=== PATIENT | female | born 1965 | race Caucasian/White ===

== ENCOUNTER 2016-05-23 14:41 | Emergency (ER) | payer OTHER ==
[~2016-05-23 14:41] MED LIST: *UNABLE1; ACET500CAP PO; ADVIL PO; APRES25 PO; CELEXA; DEPAKOTEER PO; DSS PO; DULERA 200 MCG/13 GM INH; GEODON; GEODON60 MG PO; HABIT14 TOP; HALDOL; HYGROTON 25 MG25 MG PO; KLONO5 PO; LOP25 PO; MEDROLPAK4 PO; MSCONT15 PO; NORV10 PO; P10 PO; P20 PO; PCET PO; PROAIR HFA INH; PROVENT20 INH; PROVENTSOL INH; SEROQUEL1C PO; SPIRIVA INH; TESS PO; TRAZ100 PO; TRAZODONE; VIB50 PO; WELLBUTRIN; WELLSR150 PO
[2016-05-23 15:31] LABS: BASOPHILS 0.1 %; BASOPHILS ABSOLUTE 0.01 10/3/uL (0.0-0.16); EOSINOPHILS 0.1 %; EOSINOPHILS ABSOLUTE 0.01 10/3/uL (0.0-0.53); IMMATURE GRANULOCYTES 0.5 %; IMMATURE GRANULOCYTES ABSOLUTE 0.05 10/3/uL (0.0-0.11); LYMPHOCYTES 4.4 %; LYMPHOCYTES ABSOLUTE 0.44 10/3/uL (0.67-4.30); MEAN CORPUS HGB CONC 31.4 g/dL (32.0-36.0); MEAN CORPUSCULAR HEMOGLOB 22.9 pg (26.0-34.0); MEAN PLATELET VOLUME 9.2 fL (9.2-13.0); MONOCYTES 6.7 %; MONOCYTES ABSOLUTE 0.67 10/3/uL (0.21-1.20); NEUTROPHILS 88.2 %; NEUTROPHILS ABSOLUTE 8.84 10/3/uL (2.02-8.40); PLATELET COUNT 213 10/3/uL (150-400); RBC DISTRIBUTION WIDTH 19.1 % (12.0-16.0)
[2016-05-23 15:33] LABS: HEMATOCRIT 46.8 % (36.0-48.0); HEMOGLOBIN 14.7 g/dL (12.0-16.0); MANUAL DIFF NO %; MEAN CORPUSCULAR VOLUME 72.9 fL (80-100); RED CELL COUNT 6.42 10/6/uL (4.0-5.6)
[2016-05-23 15:47] LABS: A/G RATIO 0.7 (0.7-1.9); ALBUMIN 3.1 G/DL (3.5-5.0); ALKALINE PHOSPHATASE 74 U/L (45-117); BUN (BLOOD UREA NITROGEN) 13 MG/DL (6-23); CALCIUM, SERUM 8.4 MG/DL (8.5-10.4); CHLORIDE, SERUM 102 MMOL/L (96-112); CO2 (CARBON DIOXIDE) 32 MMOL/L (24-34); CREATININE 0.81 MG/DL (0.55-1.02); GFR AFRICAN AMERICAN 100 ML/MIN (>=60); GFR NON AFRICAN AMERICAN 86 ML/MIN (>=60); GLOBULIN 4.4 G/DL (2.5-4.1); GLUCOSE, SERUM 117 MG/DL (60-99); POTASSIUM, SERUM 3.9 MMOL/L (3.5-5.3); SGOT(AST) 10 U/L (5-40); SGPT(ALT) 17 U/L (5-65); SODIUM, SERUM 140 MMOL/L (135-148); TOTAL BILIRUBIN 0.8 MG/DL (0-1.2); TOTAL PROTEIN 7.5 G/DL (6.0-8.5)
[2016-09-17] MEDS ORDERED: PROVHFA INH (20:15)
[2016-09-17] MEDS ORDERED: NORV10 PO (20:15)
[2016-09-17] MEDS ORDERED: KLONO5 PO (20:15)
[2016-09-17] MEDS ORDERED: ANTI-DEPRESSANT PO (20:16)
[2016-09-17] MEDS ORDERED: ANOROELLIPTA INH (20:16)
[2016-09-17] MEDS ORDERED: ICY HOT OINTMENT TOP (20:17)
[2016-09-17] MEDS ORDERED: P10 PO (20:17)
[2016-09-17] MEDS ORDERED: ADVIL PO (20:17)
== END 2016-05-23 22:24 | disposition left against medical advice (07) ==
LOC: ER 14:41
PROVIDERS: Emergency Medicine
DX: Z53.21 Procedure and treatment not carried out due to patient leaving prior to being seen by health care provider (principal)
CPT/HCPCS: 80053; 81001; 83690; 84703; 85025; 93005

== ENCOUNTER 2016-11-26 17:48 | Inpatient (IN) | payer OTHER ==
[~2016-11-26] VITALS: Ht 170.2 cm; Wt 137.4 kg
--- NOTE | ~2016-11-26 | HP ---
History And Physical [facility] [address] [facility] [place]. [address] NAME: SEFERINO AWAN : 69 STATUS : ADM Jose PAT#: [id number] AGE: 51 ADM/REG DATE : 11/26/16 MR#: [id number] REPORT SERV DATE: 11/26/16 DICTATED BY: HUMBERTO DALTON DATE: 11/26/16 REPORT STATUS : Draft TRANSCRIBED BY: MODL DATE: 11/26/16 DATE OF ADMISSION: 11/26/2016 CHIEF COMPLAINT: Shortness of breathing. HISTORY OF PRESENT ILLNESS: This is a 51-year-old female with a history of hypertension; bipolar disorder; obstructive sleep apnea and schizoaffective disorder; history of polysubstance abuse with methamphetamine, marijuana, and tobacco, who presents to the emergency room at [facility], with the above-mentioned complaint. History is obtained from the patient and reviewing data available on the [employer] system. According to the patient, she was in her usual state of health until about three days ago when she started having shortness of breath. She had an inhaler, which she had received from her primary care physician, and she had used this on an as needed basis. However, that did not work, and she continued to get worse to the point she could not breathe at all. She decided to come to the emergency room to be evaluated. In the emergency room, she was found to have an exacerbation of her COPD. CTA of the chest and chest x-ray were unremarkable. An EKG showed normal sinus rhythm at a rate of 90. She did have a small bump in her troponin as well, and Hospitalist Service is asked to admit her for further evaluation and treatment. At the time of my evaluation, she denied any chest pain or palpitations. She had no orthopnea. She had a cough, which was essentially nonproductive, not associated with hemoptysis, night sweats, or weight loss. She denied any recent fevers, chills, nausea, vomiting, diarrhea, or dysuria. She denied any hematemesis, hematochezia, or hematuria. No other history of recent travel or exposures other than those mentioned above. PAST MEDICAL HISTORY: Significant for history of COPD with current smoking; history of bipolar disorder; essential hypertension; history of sleep apnea noncompliant with CPAP; schizoaffective disorder; and substance abuse with methamphetamine, marijuana, and tobacco. SOCIAL HISTORY: As mentioned above, she has ongoing use for methamphetamine and marijuana. She says she quit smoking about a week or so ago. She denied alcohol use. FAMILY HISTORY: Noncontributory. MEDICATIONS: Her medications at home were reviewed by me in the chart today and reordered by me. REVIEW OF SYSTEMS: As in history of present illness. All other systems were reviewed in detail and are quite unremarkable. PHYSICAL EXAMINATION: GENERAL: This is a pleasant 51-year-old not in any acute distress. History And Physical [address] [place]. [address] NAME: SEFERINO AWAN : 69 STATUS : ADM Jose PAT#: [id number] AGE: 51 ADM/REG DATE : 11/26/16 MR#: [id number] REPORT SERV DATE: 11/26/16 DICTATED BY: HUMBERTO DALTON DATE: 11/26/16 REPORT STATUS : Draft TRANSCRIBED BY: FRANKLIN DATE: 11/26/16 HEENT: Her head is atraumatic, normocephalic. She is alert, awake, oriented to time, place, and person. Her pupils are equal, reacting to light and accommodating. External ocular muscles are intact. Membranes are moist and pink. Sclerae are nonicteric. NECK: Supple with no jugular venous distention, lymphadenopathy, or thyromegaly. She is morbidly obese. LUNGS: Auscultation of her lungs revealed fair to moderate air entry bilaterally with diffuse bilateral expiratory wheezes as well. Trachea appears in the midline. HEART: Heart sounds were regular with no murmurs, rubs, or gallops. ABDOMEN: Soft, nontender. Bowel sounds are present. EXTREMITIES: Showed no cyanosis, clubbing, or edema. NEURO: Grossly intact. No focal sensory or motor deficits. Higher functions appeared intact. Gait was normal. VITAL SIGNS: Her vital signs today showed a temperature of 98.2, pulse 124, respirations 28 a minute, blood pressure was 142/78, oxygen saturations were 93% breathing 4 L of oxygen via nasal cannula. LABORATORY DATA: Reviewed on the [employer] system showed a pH of 7.33 on an arterial blood gas, PCO2 was 54, PaO2 of 64, and bicarb was 27.8. This was on 2 L via nasal cannula. Her CMP was within normal limits. Blood glucose was 76 today. Her troponin was elevated at 0.08. CBC showed a white blood cell count of 13,700. Normal hemoglobin, hematocrit, and platelet count. Films of the CTA of her chest and chest x-ray were reviewed by me on the PACS today and interpreted by me. The CTA of her chest did not reveal any pulmonary embolism. No lobar consolidations or pleural effusions. Chest x-ray was clear as well. A 12-lead EKG done in the emergency room was reviewed and interpreted by me. There is normal sinus rhythm at a rate of 90 per minute without any ST changes. IMPRESSION: 1. Shortness of breath. 2. Acute exacerbation of her chronic obstructive pulmonary disease. 3. Elevated troponin. 4. Hypertension. 5. Bipolar disorder. 6. Sleep apnea, noncompliant. 7. Schizoaffective disorder. 8. Polysubstance abuse. PLAN: We will admit Ms. Awan to the Hospitalist Service to a cardiac telemetry for 24-hour observation period. We will maximize her bronchodilator treatments, continue supplemental oxygen therapy, place her on inhaled and intravenous corticosteroids as well. We will also start her on empiric antibiotics. We will follow serial troponin levels, although I think it may be demand ischemia due to her hypoxia. We will also start her on blood pressure control and her home medications, especially her psychiatric medicines. We will place her on unfractionated heparin for DVT prophylaxis while here. We will also check UDS today. I have discussed the above plans with the patient, her questions were answered, and she is agreeable to the above recommendations. History And Physical [address] [address] NAME: SEFERINO AWAN : 69 STATUS : ADM Jose PAT#: [id number] AGE: 51 ADM/REG DATE : 11/26/16 MR#: [id number] REPORT SERV DATE: 11/26/16 DICTATED BY: HUMBERTO DALTON DATE: 11/26/16 REPORT STATUS : Draft TRANSCRIBED BY: FRANKLIN DATE: 11/26/16 Hospitalist Service will be following her during her stay here. /FRANKLIN Humberto Dalton M.D. / [id number] CC: Ramon Arizmendi MD
--- NOTE | ~2016-11-26 | DS ---
Discharge Summary [address] [place]. [address] NAME: SEFERINO AWAN : 69 STATUS : DIS IN PAT#: [id number] AGE: 51 ADM/REG DATE : 11/26/16 MR#: [id number] REPORT SERV DATE: 11/30/16 DICTATED BY: MADISYN PEREIRA DATE: 11/30/16 REPORT STATUS : Draft TRANSCRIBED BY: MODTerence DATE: 11/30/16 ADMISSION DATE: 11/26/2016 DISCHARGE DATE: 11/30/2016 DIAGNOSES: 1. Chronic obstructive pulmonary disease exacerbation. 2. Acute hypoxic respiratory failure, resolved. 3. Hypertension. 4. History of obstructive sleep apnea noncompliant with CPAP. FOLLOWUP: The patient is to follow up with the primary care physician in one to two weeks. The patient states she follows up at the [facility] in [place], [place]. HOSPITALIST: Dr. Mil Robbins with [facility], nurse practitioner; Dr. Floyd; Dr. Pereira; and Dr. Humberto Rivers. DISCHARGE MEDICATIONS: Amlodipine 10 mg p.o. q.h.s.; Seroquel 50 mg p.o. b.i.d.; Klonopin 0.5 mg p.o. q.h.s., per home dose; hydralazine 25 mg p.o. q.12 hours; prednisone taper at 30 mg p.o. daily for two days, then 20 mg p.o. daily for two days, then to continue at her maintenance dose of 10 mg p.o. daily per her home dose; albuterol MDI two puffs inhaled every four hours p.r.n.; albuterol neb q.6 hours; Symbicort 160/4.5 two puffs inhaled b.i.d.; Spiriva inhaled daily; Levaquin 750 mg p.o. daily for three days. HOSPITAL COURSE: Please see H and P dictated by Dr. Humberto Rivers. This is a 51-year-old female with a past medical history of hypertension, schizoaffective disorder, obstructive sleep apnea noncompliant with the CPAP, also history of tobacco abuse, presented with shortness of breath. The patient states she has used prednisone as an outpatient without any alleviation of her symptoms. She was found to have bilateral wheezing. She did have a CTA that was initially unremarkable. She was admitted to the hospitalist Service for COPD exacerbation as well as the acute hypoxic respiratory failure. She did have some mild troponinemia secondary to her acute hypoxic respiratory failure, but no complaints of chest discomfort. She was initially cared for by other hospitalists with no noted EKG changes with a normal sinus rhythm, no ST elevations. The patient was educated on the importance of compliance with medical therapy, and she was continued on antibiotics as well as bronchodilators and slow steroid taper with improvement of her clinical symptoms, although at the time of discharge, the patient did still have some mild wheezing, however, the patient was adamant about being discharged to home. O2 sats at the time of discharge remained greater than 90% on room air with ambulation. Also, to know her UDS was positive for amphetamines and tricyclics. The patient was discharged to home in stable condition to followup with her primary care as an outpatient. I attended care for this patient initiating on 11/29/2016. Please refer to records from previous providers for further details, per Dr. Humberto Rivers, Dr. Mil Robbisn, and Dr. Floyd. [facility] Discharge Summary [address] [address] NAME: SEFERINO AWAN : 69 STATUS : DIS IN [facility]#: [id number] AGE: 51 ADM/REG DATE : 11/26/16 MR#: [id number] REPORT SERV DATE: 11/30/16 DICTATED BY: MADISYN PEREIRA DATE: 11/30/16 REPORT STATUS : Draft TRANSCRIBED BY: FRANKLIN DATE: 11/30/16 Madisyn Pereira M.D. / [id number] CC: Madisyn Pereira M.D.
[~2016-11-26 17:48] MED LIST changes: +ANOROELLIPTA INH; +ANTI-DEPRESSANT PO; +ICY HOT OINTMENT TOP; +PROVHFA INH
[2016-11-26 19:29] LABS: BASOPHILS 0.5 %; BASOPHILS ABSOLUTE 0.07 10/3/uL (0.0-0.16); EOSINOPHILS 0.4 %; EOSINOPHILS ABSOLUTE 0.06 10/3/uL (0.0-0.53); HEMOGLOBIN 13.7 g/dL (12.0-16.0); IMMATURE GRANULOCYTES 0.7 %; IMMATURE GRANULOCYTES ABSOLUTE 0.09 10/3/uL (0.0-0.11); LYMPHOCYTES 14.6 %; LYMPHOCYTES ABSOLUTE 2.01 10/3/uL (0.67-4.30); MEAN CORPUS HGB CONC 31.1 g/dL (32.0-36.0); MEAN CORPUSCULAR HEMOGLOB 25.5 pg (26.0-34.0); MEAN PLATELET VOLUME 9.2 fL (9.2-13.0); MONOCYTES 9.2 %; MONOCYTES ABSOLUTE 1.27 10/3/uL (0.21-1.20); NEUTROPHILS 74.6 %; NEUTROPHILS ABSOLUTE 10.23 10/3/uL (2.02-8.40); PLATELET COUNT 223 10/3/uL (150-400); RBC DISTRIBUTION WIDTH 17.6 % (12.0-16.0); RED CELL COUNT 5.38 10/6/uL (4.0-5.6); WHITE BLOOD CELLS 13.7 10/3/uL (4.5-10.5)
[2016-11-26 19:30] LABS: MANUAL DIFF NO %; MEAN CORPUSCULAR VOLUME 81.8 fL (80-100)
[2016-11-26 19:37] LABS: PROTIME (NOT ORD) 13.1 SEC (12.0-14.5)
[2016-11-26 19:47] LABS: BUN (BLOOD UREA NITROGEN) 8 MG/DL (6-23); CALCIUM, SERUM 9.1 MG/DL (8.5-10.4); CHLORIDE, SERUM 102 MMOL/L (96-112); CO2 (CARBON DIOXIDE) 31 MMOL/L (24-34); CREATININE 0.66 MG/DL (0.55-1.02); GFR AFRICAN AMERICAN 120 ML/MIN (>=60); GFR NON AFRICAN AMERICAN 104 ML/MIN (>=60); GLUCOSE, SERUM 76 MG/DL (60-99); POTASSIUM, SERUM 3.7 MMOL/L (3.5-5.3); SODIUM, SERUM 140 MMOL/L (135-148)
[2016-11-26 19:48] LABS: CHEST PAIN PROFILE TAT 0 Hrs 23 Mins; TROPONIN I 0.08 NG/ML (<0.05)
[2016-11-26] MEDS ORDERED: ALBUTEROL0.083 % INH (19:49)
[2016-11-26] MEDS ORDERED: SEROQUEL1C PO (19:54)
[2016-11-26 20:22] LABS: BE (BASE EXCESS) 0.8 MEQ/L (0 +/- 2.5); HCO3 (ACTUAL BICARBONATE) 27.8 MEQ/L (23-27); INSTRUMENT SERIAL # 8087; PCO2 (CO2 TENSION) 54 MMHG (35-45); PO2 (O2 TENSION) 64 MMHG (79-93); pH 7.33 (7.37-7.43)
[2016-11-26 20:23] LABS: ALLENS TEST Pos; CARBOXYHEMOGLOBIN 2.7 % (0-3); DEVICE NC; HEMOBLOGIN CONTENT 14.2 G/DL (12-16); METHEMOGLOBIN 0.2 % (0-3); O2 CONTENT 17.7 VOL% (18-24); OPERATOR ID 30013; SAMPLE Arterial
[2016-11-27 04:03] LABS: BASOPHILS 0.1 %; BASOPHILS ABSOLUTE 0.02 10/3/uL (0.0-0.16); EOSINOPHILS 0 %; HEMATOCRIT 43.9 % (36.0-48.0); HEMOGLOBIN 13.9 g/dL (12.0-16.0); IMMATURE GRANULOCYTES 0.5 %; IMMATURE GRANULOCYTES ABSOLUTE 0.08 10/3/uL (0.0-0.11); LYMPHOCYTES 2.7 %; LYMPHOCYTES ABSOLUTE 0.41 10/3/uL (0.67-4.30); MEAN CORPUS HGB CONC 31.7 g/dL (32.0-36.0); MEAN CORPUSCULAR HEMOGLOB 25.7 pg (26.0-34.0); MEAN CORPUSCULAR VOLUME 81.1 fL (80-100); MEAN PLATELET VOLUME 9.4 fL (9.2-13.0); MONOCYTES 0.6 %; MONOCYTES ABSOLUTE 0.09 10/3/uL (0.21-1.20); NEUTROPHILS 96.1 %; PLATELET COUNT 213 10/3/uL (150-400); RBC DISTRIBUTION WIDTH 17.6 % (12.0-16.0); RED CELL COUNT 5.41 10/6/uL (4.0-5.6); WHITE BLOOD CELLS 15.3 10/3/uL (4.5-10.5)
[2016-11-27 04:07] LABS: MANUAL DIFF NO %
[2016-11-27 04:23] LABS: BUN (BLOOD UREA NITROGEN) 10 MG/DL (6-23); CALCIUM, SERUM 9.1 MG/DL (8.5-10.4); CHLORIDE, SERUM 103 MMOL/L (96-112); CO2 (CARBON DIOXIDE) 30 MMOL/L (24-34); GFR AFRICAN AMERICAN 100 ML/MIN (>=60); GFR NON AFRICAN AMERICAN 87 ML/MIN (>=60); POTASSIUM, SERUM 4.2 MMOL/L (3.5-5.3); SODIUM, SERUM 140 MMOL/L (135-148)
[2016-11-27 04:26] LABS: GLUCOSE, SERUM 215 MG/DL (60-99); PHOSPHORUS, SERUM 1.9 MG/DL (2.5-4.5); TROPONIN I 0.08 NG/ML (<0.05)
[2016-11-27 04:51] LABS: AMPHETAMINES (NOT ORD) POS (NEG); BARBITURATES (NOT ORDERED NEG (NEG); BENZODIAZEPINES (NOT ORD) NEG (NEG); CANNABINOIDS (THC) NEG (NEG); COCAINE (NOT ORDERED) NEG (NEG); OPIATES NEG (NEG); PHENCYCLIDINE(PCP) NEG (NEG); TRICYCLICS POS (NEG)
[2016-11-27] MEDS ORDERED: APRES25 PO (10:44)
[2016-11-28 06:19] LABS: HEMATOCRIT 43.9 % (36.0-48.0); HEMOGLOBIN 13.8 g/dL (12.0-16.0); MEAN CORPUS HGB CONC 31.4 g/dL (32.0-36.0); MEAN CORPUSCULAR HEMOGLOB 25.9 pg (26.0-34.0); MEAN CORPUSCULAR VOLUME 82.5 fL (80-100); MEAN PLATELET VOLUME 9.4 fL (9.2-13.0); PLATELET COUNT 234 10/3/uL (150-400); RBC DISTRIBUTION WIDTH 17.7 % (12.0-16.0); RED CELL COUNT 5.32 10/6/uL (4.0-5.6)
[2016-11-28 06:24] LABS: CALCIUM, SERUM 9.3 MG/DL (8.5-10.4); CHLORIDE, SERUM 102 MMOL/L (96-112); CO2 (CARBON DIOXIDE) 33 MMOL/L (24-34); GFR AFRICAN AMERICAN 118 ML/MIN (>=60); GFR NON AFRICAN AMERICAN 102 ML/MIN (>=60); POTASSIUM, SERUM 4.3 MMOL/L (3.5-5.3); SODIUM, SERUM 140 MMOL/L (135-148); WHITE BLOOD CELLS 28.4 10/3/uL (4.5-10.5)
[2016-11-28 06:25] LABS: BUN (BLOOD UREA NITROGEN) 16 MG/DL (6-23); GLUCOSE, SERUM 149 MG/DL (60-99); MANUAL DIFF YES %
[2016-11-28 06:26] LABS: TROPONIN I 0.08 NG/ML (<0.05)
[2016-11-28 06:57] LABS: ANISOCYTOSIS 1+ (5-10/OIF) (0-5/OIF); BAND NEUTROPHILS 3 %; HYPOCHROMIA 1+ (3-10/OIF) (0-2/OIF); LYMPHOCYTES 2 %; LYMPHOCYTES ABSOLUTE (CALC) 0.57 10/3/uL (0.67-4.30); MONOCYTES 5 %; MONOCYTES ABSOLUTE (CALC) 1.42 10/3/uL (0.21-1.20); NEUTROPHILS ABSOLUTE (CALC) 26.41 10/3/uL (2.02-8.40); PLATELET ESTIMATE ADQ (ADEQUATE); SEGMENTED NEUTROPHIL (0) 90 %; TOTAL NUCLEATED CELLS 100
[2016-11-28 06:59] LABS: PROCALCITONIN <0.05 ng/mL (<0.5)
[2016-11-29 06:00] LABS: BASOPHILS 0.1 %; BASOPHILS ABSOLUTE 0.02 10/3/uL (0.0-0.16); EOSINOPHILS 0 %; HEMATOCRIT 43.6 % (36.0-48.0); HEMOGLOBIN 13.4 g/dL (12.0-16.0); IMMATURE GRANULOCYTES 0.8 %; IMMATURE GRANULOCYTES ABSOLUTE 0.17 10/3/uL (0.0-0.11); LYMPHOCYTES 10.5 %; MEAN CORPUS HGB CONC 30.7 g/dL (32.0-36.0); MEAN CORPUSCULAR HEMOGLOB 25.8 pg (26.0-34.0); MONOCYTES 6.6 %; MONOCYTES ABSOLUTE 1.39 10/3/uL (0.21-1.20); NEUTROPHILS ABSOLUTE 17.13 10/3/uL (2.02-8.40); PLATELET COUNT 209 10/3/uL (150-400); RED CELL COUNT 5.19 10/6/uL (4.0-5.6); WHITE BLOOD CELLS 20.9 10/3/uL (4.5-10.5)
[2016-11-29 06:01] LABS: MANUAL DIFF NO %
[2016-11-29 12:56] LABS: BUN (BLOOD UREA NITROGEN) 19 MG/DL (6-23); CALCIUM, SERUM 8.4 MG/DL (8.5-10.4); CHLORIDE, SERUM 102 MMOL/L (96-112); CO2 (CARBON DIOXIDE) 32 MMOL/L (24-34); CREATININE 0.66 MG/DL (0.55-1.02); GFR AFRICAN AMERICAN 120 ML/MIN (>=60); GFR NON AFRICAN AMERICAN 104 ML/MIN (>=60); GLUCOSE, SERUM 98 MG/DL (60-99); POTASSIUM, SERUM 3.9 MMOL/L (3.5-5.3); SODIUM, SERUM 139 MMOL/L (135-148)
[2016-11-30] MEDS ORDERED: SYMBICORT 160/41 INH INH (09:59)
[2016-11-30] MEDS ORDERED: SPIRO25 PO (10:00)
[2016-11-30] MEDS ORDERED: P10 PO (10:02)
[2016-11-30] MEDS ORDERED: LEVAQUIN750 MG PO (10:02)
[2016-11-30] MEDS ORDERED: HALF81 PO (10:08)
== END 2016-11-30 11:56 | disposition home or self-care (01) | DRG 189 ==
LOC: ENRESERV → ENRESERVDT → ENRESERVTM → ER 17:48 → CDU1 22:13 → ENPENDDIS 22:13 → CDU2 22:13 → 1SO 22:13 → CDU2 22:22 → 1SO 11-28 10:07
PROVIDERS: Hospitalist; Internal Medicine; Internal Medicine Pulmonary Disease; Nurse Practitioner Family; Student in an Organized Health Care Education/Training Program
DX: J96.01 Acute respiratory failure with hypoxia (principal); J44.1 Chronic obstructive pulmonary disease with (acute) exacerbation; I10 Essential (primary) hypertension; F25.0 Schizoaffective disorder, bipolar type; G47.33 Obstructive sleep apnea (adult) (pediatric); Z91.19 Patient's noncompliance with other medical treatment and regimen; Z87.891 Personal history of nicotine dependence; F19.10 Other psychoactive substance abuse, uncomplicated
CPT/HCPCS: 36600; 71020; 71275; 80048; 80305; 82805; 83735; 84100; 84145; 84484; 85025; 85610; 85730; 87040; 87449; 93005; 94640; 96374; 99285; A9270-GY; J0456; J2930; Q9967